=== PATIENT | male | born 1980 | race Caucasian/White ===

== ENCOUNTER 2017-06-23 07:22 | Day surgery (SDC) | payer OTHER ==
[~2017-06-23 07:22] MED LIST: CEFAZOLIN 2 GM-D5W BAG** 2 GM/50 ML ML IV SCH; Lactated Ringers 1,000 ML IV SCH
[2017-06-23] MEDS ORDERED: MARCAINE 0.5%-EPI 1:200,000 VL IJ ONE (07:23)
[2017-06-23] MEDS ORDERED: XYLOCAINE 1%/Epi 1:100000 MDV 20 ML IJ ONE (07:23)
[2017-06-23] MEDS ORDERED: Lactated Ringers 1,000 ML IV ONE (07:39)
[2017-06-23] MEDS ORDERED: EPINEPHRINE 1MG/ML AMP ONE (07:39)
[2017-06-23 07:51] VITALS: O2SAT 97
[2017-06-23] MEDS ORDERED: ON-Q PUMP 1 in Marcaine MPF 0.25% 30 ML*** 135 ML, Marcaine Mpf 0.5% Vial 30 Ml*** 135 ML IJ SCH (10:45)
[2017-06-23] MEDS ORDERED: SUBLIMAZE 100 MCG/2 ML ONE (12:11)
--- NOTE | 2017-06-23 13:17 | OP ---
SURGERY DATE: 06/23/17 SURGERY TIME: 1033 PREOPERATIVE DIAGNOSIS: 1. LEFT KNEE INTERNAL DERANGEMENT. POSTOPERATIVE DIAGNOSIS: 1. LEFT KNEE PATELLOFEMORAL CHONDROMALACIA. 2. LEFT KNEE OSTEOCHONDRITIS DISECCANS LESIONS AND MENISCAL TEAR LATERAL. 3. 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 PROCEDURE: 1. Left knee arthroscopy with chondroplasty. 2. Left knee arthroscopy with extensive debridement. 3. Left knee arthroscopy with saucerization of bone-tibial plateau. 4. Long-leg splint. 5. On-Q pump catheter for postoperative pain. SURGEON: Dr. Alfred. SUPERVISOR CELLARS: None. ESTIMATED BLOOD LOSS: Minimal. ANESTHESIA: General per [employer]. DESCRIPTION OF PROCEDURE: Patient taken to the operative suite. Placed in the supine position. Given a general anesthetic. Placed supine. All neurovascular was well padded. Sterile prep and drape done to the leg and tourniquet applied, inflated, and exsanguinated. Entry point made in the infralateral aspect of the knee. Inflow established there. Medial joint line penetrated with spine needle, stab incision, and 4.0 full radius shaver and then diagnostic arthroscopy begun. The patellofemoral surface and chondral surfaces of the patella and then both femoral condyles were assessed. There was no eburnated bone, but there was stage III [place] changes throughout most of the patellofemoral joint and ArthroCare device and a Serfas device along with a shaver was used to trim this up and tighten this up on a low chondral setting and pictures were taken, probe was done, and where depressions and fissures were seen, these were flattened out and smoothed over. Meniscal tears were seen on both sides of the knee. Radial tears particularly in the lateral side were cleaned up with punch forceps and a 4-0 full radius shaver as well. Probe was done and defects were appreciated as well. These were cleaned up with removal of tissue and pictures were taken of this as well. The area of bone of elevation of the plateau with overlying area of chondral debris and then using a modified bur or shaver, this was flattened out. This probably covers 5 mm or so, maybe 10 mm at the most, in the tibiotalar area of the intercondylar notch and the matching area of the surface of the knee. This was smoothed over and clean. Knee was drained of saline and chondral debris cleaned up where appropriate and then long-leg splint applied. Ethilon sutures to the portal sites and Xeroform, 4X4's, and sterile dressings. An On-Q pump catheter placed astride the joint line on the lateral side run at a 1 cc/h rate of 0.5% Marcaine was then introduced into the knee and it would be the daphne-colored catheter secured with Steri-strips.
[2017-06-23 13:47] VITALS: BP 153/87; PULSE 83
== END 2017-06-23 13:54 | disposition home or self-care (01) ==
LOC: SDC 07:22
PROVIDERS: ATTEND Orthopaedic Surgery
PROC: 0YB Anatomical Regions, Lower Extremities, Excision (ICD-10-PCS; principal; 2017-06-23)
PROC: 0SBD4ZZ Excision of Left Knee Joint, Percutaneous Endoscopic Approach (ICD-10-PCS; 2017-06-23)
DX: M22.42 Chondromalacia patellae, left knee (principal); M93.262 Osteochondritis dissecans, left knee; D16.22 Benign neoplasm of long bones of left lower limb
CPT/HCPCS: 01382; J0171; J0690; J3010; L1830